=== PATIENT | male | born 1935 | race Caucasian/White ===

== ENCOUNTER 2019-06-10 12:53 | Emergency (ER) | payer MEDICARE ==
[~2019-06-10] VITALS: Ht 172.7 cm; Wt 77.1 kg
--- NOTE | ~2019-06-10 | EKG ---
[place], [place] ELECTROCARDIOGRAM REPORT NAME: LANNY MAYO UNIT #: [id number] ROOM: DOCTOR: EPIPHANY DRAFT REPORT BIRTHDATE: [birth year] [facility] Test Date: 2019-06-10 Test Time: 13:28:30 Pat Name: LANNY MAYO Department: Room: Gender: Collector: Kirstie Goode : 1935 Requested By: CORNELL BRAY Order Number: [id number] Reading MD: Will De La Cruz MD Measurements Intervals [place] Rate: 73 P: 72 MI: 153 QRS: 19 QRSD: 74 T: 69 QT: 390 QTc: 430 Interpretive Statements Sinus rhythm Abnormal R-wave progression, early transition Baseline wander in lead(s) V2 No previous ECG available for comparison Electronically Signed On 06-10-2019 14:03:09 PDT by Will De La Cruz MD CM:EKGRPT:ELECTROCARDIOGRAM REPORT [id number] CORNELL BRAMBILA DRAFT REPORT CORNELL BRAY DO
[2019-06-10 12:55] VITALS: BP 161/88
[2019-06-10 13:38] LABS: BASO % 0.5 % (0.0-1.0); EOS # 0.1 10*3/uL (0.0-0.4); EOS % 1.5 % (1.0-4.0); HEMATOCRIT 43.6 % (42.0-52.0); HEMOGLOBIN 14.6 g/dl (14.0-18.0); LYMPH # 1.3 10*3/uL (1.3-4.4); LYMPH % 16.9 % (27.0-41.0); MEAN CELL VOLUME 94.2 fl (80.0-94.0); MEAN CORPUSCULAR HGB 31.5 pg (27.0-31.0); MEAN CORPUSCULAR HGB CONC 33.5 g/dl (33.0-37.0); MEAN PLATELET VOLUME 11.2 fl (9.6-12.3); MONO # 0.7 10*3/uL (0.1-1.0); MONO % 8.9 % (3.0-9.0); NEUT # 5.6 10*3/uL (2.3-7.9); NEUT % 71.9 % (47.0-73.0); PLATELET COUNT AUTOMATED 213 10*3/uL (130-400); RED BLOOD COUNT 4.63 10*6/uL (4.50-5.90); RED CELL DISTRI WIDTH 12.9 % (0-14.5); WHITE BLOOD COUNT 7.8 10*3/uL (4.8-10.8)
[2019-06-10 13:49] LABS: ACT PARTIAL THROMBO TIME 24.7 SECONDS (20.0-32.1); INTERNATIONAL NORM RATIO 0.9 (2.0-3.5)
[2019-06-10 13:54] LABS: ALBUMIN 3.6 gm/dl (3.1-4.5); ALKALINE PHOSPHATASE 72 U/L (45-117); BUN 11 mg/dl (7-24); CHLORIDE 108 mmol/L (98-107); CPK 107 U/L (39-308); CREATININE 0.83 mg/dL (0.70-1.30); POTASSIUM 4.1 mmol/L (3.5-5.1); SGOT/AST 18 IU/L (3-35); SGPT/ALT 19 U/L (12-78); SODIUM 140 mmol/L (136-145); TOTAL PROTEIN 7.6 gm/dL (6.4-8.2)
[2019-06-10 13:55] LABS: CKMB 4.6 ng/ml (0.5-3.6)
[2019-06-10 13:59] LABS: TROPONIN I < 0.015 ng/ml (<0.045)
== END 2019-06-10 14:36 ==
LOC: ED 12:53
PROVIDERS: Emergency Medicine
DX: G45.9 Transient cerebral ischemic attack, unspecified (principal); R07.9 Chest pain, unspecified; R42 Dizziness and giddiness; Z91.040 Latex allergy status